=== PATIENT | male | born 1970 | race Caucasian/White ===

== ENCOUNTER 2021-01-17 11:48 | Outpatient (REF) | payer OTHER, SELFPAY ==
[2021-01-18 19:02] LABS: Rubella IgG Antibody 4.04 Index; Rubeola IgG (Measles) >300.00 AU/mL
== END 2021-01-17 11:49 | disposition home or self-care (01) ==
LOC: HO.LAB 11:48
PROVIDERS: PCP Internal Medicine; Visit Provider Internal Medicine
DX: Z01.84 Encounter for antibody response examination (principal); Z28.3 Underimmunization status
CPT/HCPCS: 36415; 86735; 86762; 86765; 86787